=== PATIENT | female | born 1970 | race Caucasian/White ===

== ENCOUNTER 2017-06-21 20:43 | Emergency (ER) | payer MEDICARE ==
--- NOTE | 2017-06-21 20:57 | ED ---
General Adult HPI - General Chief complaint: Upper Respiratory Infection Stated complaint: Cough/Cogestion Time Seen by Provider: 06/21/17 20:49 Source: patient, RN notes reviewed Mode of arrival: ambulatory Limitations: no limitations - History of Present Illness Initial comments: 47-year-old female presents to the emergency department with a chief complaint of cough. She's had a cough with some sputum production or so. About 3 weeks ago she went on steroids but states the cough has continued. She is single. She states she's been using her breathing treatments and inhalers but she continues to have the cough. She states she's had fevers on and off. She denies any chills. She states she is having yellow production. Any increased shortness of breath. She was concerned due to the continued cough so she thought that she should be evaluated. She denies any other symptoms at this time. Patient denies any recent shortness of breath, chest pain, back pain, abdominal pain, nausea vomiting, numbness or tingling, dysuria or hematuria, constipation or diarrhea, headaches or visual changes, or any other current symptoms. - Related Data Home Medications Medication Instructions Recorded Confirmed Albuterol Inhaler [Ventolin 1 - 2 puff INHALATION BID PRN 01/06/14 06/21/17 Inhaler] Previous Rx's Medication Instructions Recorded Benzonatate [Tessalon Perles] 100 mg PO TID #20 cap 06/21/17 Levofloxacin [Levaquin] 750 mg PO DAILY #7 tab 06/21/17 predniSONE 50 mg PO DAILY #5 tab 06/21/17 Allergies Allergy/AdvReac Type Severity Reaction Status Date / Time aspirin Allergy Rash/Hives Verified 06/21/17 21:05 latex Allergy Rash/Hives Verified 06/21/17 21:05 Review of Systems ROS Statement: Those systems with pertinent positive or pertinent negative responses have been documented in the HPI. ROS Other: All systems not noted in ROS Statement are negative. Past Medical History Past Medical History: Asthma, GERD/Reflux, Osteoarthritis (OA), Seizure Disorder Additional Past Medical History / Comment(s): last seizure approx. 1 year ago History of Any Multi-Drug Resistant Organisms: None Reported Past Surgical History: Cholecystectomy, Hysterectomy, Orthopedic Surgery, Tubal Ligation Additional Past Surgical History / Comment(s): foot surg., left knee surg., right arm surg., trigger finger surg. Past Anesthesia/Blood Transfusion Reactions: No Reported Reaction Past Psychological History: Depression Smoking Status: Current every day smoker Past Alcohol Use History: None Reported Past Drug Use History: None Reported General Exam - General Exam Comments Initial Comments: General exam: Alert, active, comfortable in no apparent distress Head: Normocephalic Eyes: Normal reaction of pupils, equal size, normal range of extraocular motion Ears: normal external ear canals, pink tympanic membranes with normal cone of light Nose: clear with pink turbinates Throat: no erythema or exudates with normal sized tonsils Neck: no masses, no nuchal rigidity Chest: no chest wall deformity Lungs: equal air entry with no crackles or wheeze CVS: S1 and S2 normal with no audible mumurs, regular rhythm Abdomen: no hepatosplenomegaly, normal bowel sounds, no guarding or rigidity Spine: no scoliosis or deformity Skin: no rashes Neurological: No focal deficits, tone is normal in all 4 extremities Limitations: no limitations Course Vital Signs 06/21/17 20:44 Temperature 98 F Pulse Rate 85 Respiratory 16 Rate Blood Pressure 114/64 O2 Sat by Pulse 96 Oximetry Medical Decision Making - Medical Decision Making 47-year-old female presents emergency Department chief complaint of cough and congestion for 1 month with a history of COPD who is still smoking. This time x -rays reviewed that does not show an acute pneumonia. At this time due to the length of time she's been more going to refer her on steroids antibiotics as well as Tessalon Perles we discussed continuing her home breathing treatments and inhaler. We discussed return parameters and follow-up. Patient stated that she understood and she is agreement this plan. All questions have been answered. She will be discharged. - Radiology Data Radiology results: report reviewed, image reviewed Disposition Clinical Impression: COPD exacerbation, Acute bronchitis Disposition: HOME SELF-CARE Condition: Stable Instructions: Acute Bronchitis (ED) Additional Instructions: Please use medication as discussed. Please follow up with family doctor if symptoms have not improved over the next two days. Please return to the emergency room if your symptoms increase or worsen or for any other concerns. Prescriptions: Benzonatate [Tessalon Perles] 100 mg PO TID #20 cap Levofloxacin [Levaquin] 750 mg PO DAILY #7 tab predniSONE 50 mg PO DAILY #5 tab Referrals: Misha Hutton MD [Primary Care Provider] - 1-2 days Time of Disposition: 21:09
--- NOTE | 2017-06-21 21:05 | XR ---
EXAMINATION TYPE: XR chest 2V DATE OF EXAM: 06/21/2017 COMPARISON: 07/04/2013 HISTORY: Cough TECHNIQUE: Frontal and lateral views of the chest are obtained. FINDINGS: Heart and mediastinum are normal. Lungs are clear. Diaphragm is normal. Bony thorax appear s normal. IMPRESSION: Normal chest. No change.
[2017-06-21 21:30] VITALS: BP 114/64; PULSE 85; TEMP 98
[2017-06-21 21:31] VITALS: RESP 20
== END 2017-06-21 21:31 | disposition home or self-care (01) ==
LOC: EC 20:43
DX: J44.0 Chronic obstructive pulmonary disease with (acute) lower respiratory infection (principal); J44.1 Chronic obstructive pulmonary disease with (acute) exacerbation; J20.9 Acute bronchitis, unspecified; F17.200 Nicotine dependence, unspecified, uncomplicated; Z88.6 Allergy status to analgesic agent; Z91.040 Latex allergy status
CPT/HCPCS: 71046; 99283

== ENCOUNTER 2018-06-09 12:55 | Emergency (ER) | payer MEDICARE, OTHER ==
[2018-06-09 13:10] VITALS: RESP 18
--- NOTE | 2018-06-09 14:29 | XR ---
EXAMINATION TYPE: XR foot complete RT DATE OF EXAM: 06/09/2018 COMPARISON: None HISTORY: Pain after fall TECHNIQUE: Three-view right foot FINDINGS: Postsurgical changes are present within the first fifth metatarsals. No acute fractures are identified. Os navicularis is present. Follow-up exams can be performed 7-10 days from acute trauma for continued pain. IMPRESSION: 1. No acute osseous abnormality.
--- NOTE | 2018-06-09 14:36 | XR ---
Right foot and right ankle HISTORY: Trauma and pain 3 views of the right foot, 3 views of the right ankle are submitted. No comparisons Postop changes are noted to the first and fifth digits. Small ossific densities present distal to the fibula. There is soft tissue swelling at the ankle. Alignment and bone mineralization otherwise main tained. IMPRESSION: There may be a small chip fracture, avulsion injury at the distal fibula.
--- NOTE | 2018-06-09 16:03 | ED ---
General Adult HPI - General Chief complaint: Extremity Injury, Lower Stated complaint: [facility] - rt ankle pain Time Seen by Provider: 06/09/18 13:33 Source: patient, RN notes reviewed, old records reviewed Mode of arrival: ambulatory Limitations: no limitations - History of Present Illness Initial comments: 48-year-old female patient passed no history of chronic back pain, previous repair of hallux valgus. Presents to ED after sustaining a right ankle injury at work. She reports that she was walking at work, she stumbled on a hose and suffered a right ankle inversion injury. She did not fall to ground, patient denies any other injury sustained. Patient primary complaint is right ankle pain in her lateral malleolus. Patient has been ambulatory with pain. Patient denies any other complaints. Systemic: Pt denies fatigue, myalgia, fever/chills, rash. Pt denies weakness, night sweats, weight loss. Neuro: Pt denies headache, visual disturbances, syncope or pre-syncope. HEENT: Pt denies ocular discharge or irritation, otalgia, rhinorrhea, pharyngitis or notable lymphadenopathy. Cardiopulmonary: Pt denies chest pain, SOB, heart palpitations, dyspnea on exertion. Abdominal/GI: Pt denies abdominal pain, n/v/d. : Pt denies dysuria, burning w/ urination, frequency/urgency. Denies new onset urinary or bowel incontinence. Neuro: Pt denies new onset weakness, paresthesias. - Related Data Home Medications Medication Instructions Recorded Confirmed Albuterol Inhaler [Ventolin 1 - 2 puff INHALATION BID PRN 01/06/14 06/21/17 Inhaler] Acetaminophen [Tylenol Extra 1,000 mg PO Q8H PRN 06/21/17 06/21/17 Strength] HYDROcodone/APAP 7.5-325MG [Burke 1 tab PO Q8H PRN 06/21/17 06/21/17 7.5-325] Montelukast [Singulair] 10 mg PO HS 06/21/17 06/21/17 carBAMazepine [TEGretol XR] 100 mg PO TID 06/21/17 06/21/17 Previous Rx's Medication Instructions Recorded Benzonatate [Tessalon Perles] 100 mg PO TID #20 cap 06/21/17 Levofloxacin [Levaquin] 750 mg PO DAILY #7 tab 06/21/17 predniSONE 50 mg PO DAILY #5 tab 06/21/17 Ibuprofen [Motrin] 600 mg PO Q6HR PRN #40 day 06/09/18 Allergies Allergy/AdvReac Type Severity Reaction Status Date / Time aspirin Allergy Rash/Hives Verified 06/09/18 13:06 latex Allergy Rash/Hives Verified 06/09/18 13:06 Review of Systems ROS Statement: Those systems with pertinent positive or pertinent negative responses have been documented in the HPI. ROS Other: All systems not noted in ROS Statement are negative. Past Medical History Past Medical History: Asthma, GERD/Reflux, Osteoarthritis (OA), Seizure Disorder Additional Past Medical History / Comment(s): last seizure approx. 1 year ago History of Any Multi-Drug Resistant Organisms: None Reported Past Surgical History: Cholecystectomy, Hysterectomy, Orthopedic Surgery, Tubal Ligation Additional Past Surgical History / Comment(s): foot surg., left knee surg., right arm surg., trigger finger surg. Past Anesthesia/Blood Transfusion Reactions: No Reported Reaction Past Psychological History: No Psychological Hx Reported, Depression Smoking Status: Current every day smoker Past Alcohol Use History: None Reported Past Drug Use History: None Reported General Exam - General Exam Comments Initial Comments: Constitutional: NAD, AOX3, Pt has pleasant affect. HEENT: NC/AT, trachea midline, neck supple, no lymphadenopathy. Posterior pharynx non erythematous, without exudates. External ears appear normal, without discharge. Mucous membranes moist. Eyes PERRLA, EOM intact. There is no scleral icterus. No pallor noted. Cardiopulmonary: RRR, no murmurs, rubs or gallops, no JVD noted. Lungs CTAB in anterior and posterior hall. No peripheral edema. Abdominal exam: Abdomen soft and non-distended. Abdomen non-tender to palpation in all 4 quadrants. Bowel sounds active in LLQ. No hepatosplenomegaly. No ecchymosis Neuro: CN II-XII grossly intact. No nuchal rigidity. MSK: Lateral malleolus of right ankle moderately tender to palpation. Plantar and dorsiflexion of ankle intact. Patient able to wiggle toes. Sensation intact. Neurovascularly intact, dorsalis pedis, posterior tibialis pulse +2 bilaterally. No ecchymoses noted. No posterior calf tenderness bilaterally, homans sign negative bilaterally. Posterior tibialis and radial pulse +2 bilaterally. Sensation intact in upper and lower extremities. Full active ROM in upper and lower extremities, 5/5 stregnth. Limitations: no limitations Course Vital Signs 06/09/18 13:06 Temperature 98.5 F Pulse Rate 77 Respiratory 18 Rate Blood Pressure 107/59 O2 Sat by Pulse 96 Oximetry Medical Decision Making - Medical Decision Making 48-year-old female patient presents ED after right ankle injury sustained at work yesterday. Patient laboratory with pain since. Patient vital signs stable , afebrile. Physical exam displayed tender lateral malleolus of right ankle. Neurovascularly intact ankle, plantar dorsiflexion intact. Plain films of right ankle displayed possible small chip fracture, avulsion injury of distal fibula. Plain film of right foot displayed no acute osseous abnormality. Findings explained to patient at length. Patient placed in a posterior ankle splint. Pt neurovascularly intact after splint Placement. Patient to Use Crutches, Not Bear Weight until Orthopedic Follow-Up. Patient to follow up with orthopedic consult and PCP in 1-2 days. Patient to return to ED if new signs symptoms develop or condition worsens in anyway. Case discussed in depth with Dr. Wilkins. Disposition Clinical Impression: Fracture of distal fibula Disposition: HOME SELF-CARE Condition: Stable Instructions (If sedation given, give patient instructions): Leg Fracture (ED) Additional Instructions: Patient to adhere to previously discussed treatment plan and will take medication(s) as directed. Patient to follow up with PCP in 1-2 days. Patient to return to ED if symptoms do not improve. Prescriptions: Ibuprofen [Motrin] 600 mg PO Q6HR PRN #40 day PRN Reason: Pain Is patient prescribed a controlled substance at d/c from ED?: No Referrals: Misha Hutton MD [Primary Care Provider] - 1-2 days Teddy Hill MD [STAFF PHYSICIAN] - 1-2 days Time of Disposition: 16:11
[2018-06-09 16:20] VITALS: BP 114/63; PULSE 73; TEMP 98.3
== END 2018-06-09 16:19 | disposition home or self-care (01) ==
LOC: EC 12:55
DX: S82.831A Other fracture of upper and lower end of right fibula, initial encounter for closed fracture (principal); J45.909 Unspecified asthma, uncomplicated; G40.909 Epilepsy, unspecified, not intractable, without status epilepticus; F17.200 Nicotine dependence, unspecified, uncomplicated; Z79.899 Other long term (current) drug therapy; Z88.6 Allergy status to analgesic agent; Z91.040 Latex allergy status; X50.1XXA Overexertion from prolonged static or awkward postures, initial encounter; Y93.01 Activity, walking, marching and hiking; Y92.69 Other specified industrial and construction area as the place of occurrence of the external cause; Y99.0 Civilian activity done for income or pay
CPT/HCPCS: 29515; 99284